=== PATIENT | male | born 2000 | race Caucasian/White ===

== ENCOUNTER 2023-11-27 20:47 | Emergency (ER) | payer MEDICAID, OTHER ==
[~2023-11-27] VITALS: Ht 188 cm; Wt 81.6 kg
[2023-11-27 22:33] VITALS: BP 131/78; TEMP 98
[2023-11-27 23:01] VITALS: O2SAT 99
== END 2023-11-28 00:52 | disposition home or self-care (01) ==
LOC: ER 20:56
DX: F19.10 Other psychoactive substance abuse, uncomplicated (principal); Z76.0 Encounter for issue of repeat prescription; Z98.890 Other specified postprocedural states

== ENCOUNTER 2024-05-29 02:25 | Emergency (ER) | payer MEDICAID, OTHER ==
[~2024-05-29] VITALS: Ht 188 cm; Wt 79.4 kg
[2024-05-29 02:32] VITALS: BP 134/68; TEMP 98.1; O2SAT 98
[2024-05-29] MEDS ORDERED: QUET25TA PO (02:56)
[2024-05-29] MEDS ORDERED: GABA-532 PO (02:56)
[2024-05-29] MEDS ORDERED: FLUO10CA26 PO (02:56)
== END 2024-05-29 03:03 | disposition home or self-care (01) ==
LOC: ER 02:29
DX: F20.9 Schizophrenia, unspecified (principal); Z76.0 Encounter for issue of repeat prescription; Z98.890 Other specified postprocedural states; Z90.49 Acquired absence of other specified parts of digestive tract; Z59.00 Homelessness unspecified